=== PATIENT | female | born 1980 | race Two or more races ===

== ENCOUNTER 2020-12-14 15:21 | Outpatient (CLI) | payer OTHER ==
--- NOTE | 2020-12-14 16:49 | XRAY Report ---
PROCEDURE: Lumbar Spine 2 View INDICATIONS: LOW BACK PAIN TECHNIQUE: 2 views of the lumbar spine were acquired. COMPARISON: None. FINDINGS: Bones: 5 [id number] vertebrae are present. There is normal bony alignment. No vertebral body compression fractures. No suspicious bony lesions. Mild multilevel endplate osteophyte formation. F acet hypertrophy throughout the mid and lower lumbar spine. Soft tissues: Overlying bowel gas pattern is normal. No suspicious soft tissue calcifications. IMPRESSION: Multilevel degenerative disc and facet disease. No acute fracture. No osseous lesion. If symptoms and/or clinical suspicion for pathology continue, further assessment with repeat plain film s, or advanced imaging (e.g., CT, MRI, or bone scan) is recommended for further assessment. Reviewed by: Lorrie Coppola MD on 12/14/2020 4:48 PM PST Approved by: Lorrie Coppola MD on 12/14/2020 4:48 PM PST Station ID: [id number]
--- NOTE | 2020-12-14 16:49 | XRAY Report ---
PROCEDURE: Hip w/Pelvis 2-3V RT INDICATIONS: LOW BACK PAIN TECHNIQUE: AP pelvis with lateral view(s) of the bilateral hip(s). COMPARISON: None. FINDINGS: Bones: No fractures or dislocations. Pelvic ring appears intact. No suspicious bony lesions. Mild periarticular osteophyte formation at the bilateral hip joints. Soft tissues: The visualized bowel gas pattern is normal. No suspicious soft tissue calcifications. IMPRESSION: Bilateral hip osteoarthritis. No acute fracture. No osseous lesion. If symptoms and/or c linical suspicion for pathology continue, further assessment with repeat plain films, or advanced miguel ging (e.g., CT, MRI, or bone scan) is recommended for further assessment. Reviewed by: Lorrie Coppola MD on 12/14/2020 4:48 PM PST Approved by: Lorrie Coppola MD on 12/14/2020 4:48 PM PST Station ID: [id number]
== END 2020-12-14 15:22 | disposition home or self-care (01) ==
LOC: DI.N 15:21
PROVIDERS: ATTEND Physician Assistant
DX: M51.36 Other intervertebral disc degeneration, lumbar region (principal); M16.0 Bilateral primary osteoarthritis of hip

== ENCOUNTER 2021-04-24 10:38 | Outpatient (CLI) | payer OTHER ==
[2021-04-24 11:53] LABS: INR 1.2 (0.8-1.2); PT - PROTHROMBIN TIME 12.8 secs (9.9-12.6)
[2021-04-24 12:00] LABS: PARTIAL THROMBOPLASTIN TIME 29.7 secs (24.9-33.3)
[2021-04-24 12:28] LABS: BASOPHILS % (AUTO) 0.5 %; EOSINOPHILS # (AUTO) 0.1 10^3/uL (0.0-0.7); EOSINOPHILS % (AUTO) 1.2 %; HCT - HEMATOCRIT 43.1 % (37.0-47.0); HGB - HEMOGLOBIN 13.7 g/dL (12.0-16.0); LYMPHOCYTES # (AUTO) 2.7 10^3/uL (1.5-3.5); LYMPHOCYTES % (AUTO) 33.3 %; MEAN CORPUSCULAR HEMOGLOBIN 27.4 pg (27.0-31.0); MEAN CORPUSCULAR HGB CONC 31.8 g/dL (32.0-36.0); MEAN CORPUSCULAR VOLUME 86.2 fL (81.0-99.0); MEAN PLATELET VOLUME 11.5 fL (7.9-10.8); MONOCYTES # (AUTO) 0.5 10^3/uL (0.0-1.0); MONOCYTES % (AUTO) 5.6 %; NEUTROPHILS # (AUTO) 4.8 10^3/uL (1.5-6.6); NEUTROPHILS % (AUTO) 59.2 %; PLT - PLATELET COUNT 309 10^3/uL (130-450); RED CELL DISTRIBUTION WIDTH 14.7 % (12.0-15.0); WHITE BLOOD COUNT 8.2 x10^3/uL (4.8-10.8)
== END 2021-04-24 10:39 | disposition home or self-care (01) ==
LOC: LAB.N 10:38
PROVIDERS: ATTEND Family Medicine
DX: Z01.812 Encounter for preprocedural laboratory examination (principal); Z51.81 Encounter for therapeutic drug level monitoring; Z79.899 Other long term (current) drug therapy
CPT/HCPCS: 36415; 85025; 85610; 85730

== ENCOUNTER 2021-11-13 14:42 | Emergency (ER) | payer OTHER, MEDICAID ==
--- NOTE | 2021-11-13 16:13 | ED Physician Documentation ---
PD HPI HEENT - Stated complaint Stated Complaint: BODY ACHES,CHILLS,FEVER,RASH ON BACK - Chief complaint Chief Complaint: Resp - History obtained from History obtained from: Patient - Additional information Additional information: 5 days of fever, chills, feeling like her back is burning, decreased appetite. She is not Covid vaccinated and someone who was in her house over the weekend who is now back in [place] was tested positive for Covid. Review of Systems Constitutional: reports: Fever, Chills Respiratory: reports: Dyspnea, Cough GI: reports: Diarrhea. denies: Nausea, Vomiting PD PAST MEDICAL HISTORY - Allergies Allergies/Adverse Reactions: Allergies Allergy/AdvReac Type Severity Reaction Status Date / Time No Known Drug Allergies Allergy Verified 11/13/21 14:52 PD ED PE NORMAL - Vitals Vital signs reviewed: Yes - General General: Alert and oriented X 3, No acute distress - Respiratory Respiratory: No respiratory distress, Clear bilaterally - Derm Derm: Other (No rash on the back) - Neuro Neuro: Alert and oriented X 3, Normal speech Results - Vitals Vitals: Vital Signs - 24 hr 11/13/21 11/13/21 14:47 16:14 Temperature 36.5 C 36.2 C L Heart Rate 98 97 Respiratory 18 18 Rate Blood Pressure 147/93 H 139/91 H O2 Saturation 98 99 Oxygen O2 Source Room air Departure - Departure Disposition: 01 Home, Self Care Clinical Impression: Viral syndrome Condition: Good Record reviewed to determine appropriate education?: Yes Instructions: ED Viral Syndrome Comments: You have a Covid test pending. You need to self quarantine until the result is done and negative. Do not leave your house. Do not get near anybody. The results should be done in 48 to 72 hours. We will call with a positive result, the fastest way to get a negative result for confirmation though is to go to the hospital website at [email or web address], click on the my [facility] tab and sign up for the patient portal. If any friends or family get sick and would like to have a Covid test done, but do not have signs or symptoms that would necessitate being hospitalized, there are multiple local options for Covid testing. [facility] keeps an updated list of testing and vaccination options at: [email or web address].
[2021-11-13 16:15] VITALS: BP 139/91
== END 2021-11-13 16:23 | disposition home or self-care (01) ==
LOC: ED 14:42
DX: U07.1 COVID-19 (principal)
CPT/HCPCS: 99282; 99283

== ENCOUNTER 2022-04-26 18:34 | Emergency (ER) | payer OTHER, MEDICAID ==
--- NOTE | 2022-04-26 19:15 | ED Physician Documentation ---
PD HPI CHEST PAIN - Stated complaint Stated Complaint: LUMP UNDER RIBCAGE/RT SIDE HEAD & SHOULDER PX - Chief complaint Chief Complaint: General - History obtained from History obtained from: Patient - History of Present Illness Timing - onset: How many weeks ago (pain in xyphoid, parasternal area the past week. Has had it intermittently over 10 years or more. No prior diagnosis. No history of autoimmune disorders but states not really evaluated for them. Onset pain week ago without noted provocation.) Timing - onset during: Light activity Timing - details: Gradual onset, Still present, Waxing and waning Quality: Aching, Sharp, Pain Location: Right chest, Epigastric Radiation: Right upper extremity Improved by: Rest Worsened by: Inspiration, Movement, Palpation, Position. No: Exertion, Eating Associated symptoms: No: Shortness of air, Nausea, Vomiting, Feeling faint / dizzy, Palpitations, Cough Similar symptoms before: No diagnosis Recently seen: Not recently seen Review of Systems Constitutional: denies: Fever, Chills Nose: denies: Rhinorrhea / runny nose, Congestion Throat: denies: Sore throat Cardiac: reports: Chest pain / pressure. 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 - Past Surgical History Past Surgical History: Yes Ortho: Other - Present Medications Home Medications: Ambulatory Orders Medication Instructions Recorded Confirmed HYDROcod/ACETAM 5/325 [Imlay 5/325] 1 ea PO Q6H PRN #15 tablet 04/26/22 Naproxen 500 mg PO BID #20 tab.sr 04/26/22 - Allergies Allergies/Adverse Reactions: Allergies Allergy/AdvReac Type Severity Reaction Status Date / Time No Known Drug Allergies Allergy Verified 04/26/22 18:48 - Social History Does the pt smoke?: No Smoking Status: Never smoker Does the pt drink ETOH?: No Does the pt have substance abuse?: Yes - Immunizations Immunizations are current?: Yes PD ED PE NORMAL - Vitals Vital signs reviewed: Yes - General General: Alert and oriented X 3, Well developed/nourished, Other (appears uncomfortable) - HEENT HEENT: Moist mucous membranes, Pharynx benign - Neck Neck: Supple, no meningeal sign, No adenopathy - Cardiac Cardiac: RRR, No murmur - Respiratory Respiratory: Clear bilaterally, Other (tender significantly and locally at xyphoid, right parasternal and lower costal margin on right. No redness, rash nor sores. Not reallly tender in pectoral muscle itself.) - Abdomen Abdomen: Soft, Non tender - Back Back: No CVA TTP, No spinal TTP - Derm Derm: Normal color, Warm and dry, No rash - Extremities Extremities: No tenderness to palpate, No edema, No calf tenderness / cord Results - Vitals Vitals: Oxygen O2 Source Room air - EKG (time done) 19:14 Rate: Rate (enter#) (91) Rhythm: NSR [place]: Normal Intervals: Normal [place] QRS: Normal Ischemia: Normal ST segments. No: ST elevation c/w ischemia, ST depression - Labs Labs: Laboratory Tests 04/26/22 04/26/22 04/26/22 19:53 19:53 19:53 WBC 10.8 RBC 5.00 Hgb 13.1 Hct 42.0 MCV 84.0 MCH 26.2 L MCHC 31.2 L RDW 15.5 H Plt Count 339 MPV 11.1 H Neut # (Auto) 5.8 Lymph # (Auto) 3.8 H [place] # (Auto) 0.7 Eos # (Auto) 0.3 Baso # (Auto) 0.1 Absolute Nucleated RBC 0.00 Nucleated RBC % 0.0 ESR Sodium 139 Potassium 4.1 Chloride 104 Carbon Dioxide 25 Anion Gap 10.0 BUN 16 Creatinine 0.6 Estimated GFR (MDRD) 111 Glucose 108 H Calcium 9.0 Total Bilirubin 0.5 AST 23 ALT 23 Alkaline Phosphatase 63 Troponin I High Sens < 2.3 L C-Reactive Protein < 1.0 Total Protein 7.9 Albumin 4.0 Globulin 3.9 Albumin/Globulin Ratio 1.0 Lipase 37 04/26/22 19:53 WBC RBC Hgb Hct MCV MCH MCHC RDW Plt Count MPV Neut # (Auto) Lymph # (Auto) [place] # (Auto) Eos # (Auto) Baso # (Auto) Absolute Nucleated RBC Nucleated RBC % ESR 7 Sodium Potassium Chloride Carbon Dioxide Anion Gap BUN Creatinine Estimated GFR (MDRD) Glucose Calcium Total Bilirubin AST ALT Alkaline Phosphatase Troponin I High Sens C-Reactive Protein Total Protein Albumin Globulin Albumin/Globulin Ratio Lipase - Rads (name of study) chest xray Radiology: Prelim report reviewed, See rad report PD MEDICAL DECISION MAKING - ED course Complexity details: reviewed results, considered differential (not tender in abdomen. Very tender at xyphoid and lower costal margin, right parasternal cartilage area. Not really tender in pectoral muscle. ECG/CXr/labs nromal. ), d/w patient Departure - Departure Disposition: 01 Home, Self Care Clinical Impression: Acute chest wall pain Condition: Stable Record reviewed to determine appropriate education?: Yes Instructions: ED Chest Pain Costochondritis Follow-Up: David Magallanes MD [Primary Care Provider] - Prescriptions: Naproxen 500 mg PO BID #20 tab.sr HYDROcod/ACETAM 5/325 [Imlay 5/325] 1 ea PO Q6H PRN #15 tablet PRN Reason: Pain Comments: Your EKG, chest x-ray, blood tests are normal as are your vital signs. No signs of more serious cause of the pain such as heart attack, heart failure, collapsed lung, pneumonia, pancreas problems. The character of your pain along with tenderness of the chest wall in pain with movement suggest some inflammatory process of the cartilage and muscles within the chest in that area. Likely some inflammation of the upper neck muscle as well. By blood testing, there is not an indication or suggestion of autoimmune problem such as rheumatoid arthritis or lupus. Unclear why you are having the inflammation in the chest wall. At this point were treated with anti-inflammatories. I wrote her prescription for naproxen twice daily with food for the next 7 to 10 days. To that add Tylenol every 4-6 hours if needed for pain or hydrocodone/acetaminophen if needs for worse pain. Follow-up with your primary care if not improving well over the next 3 to 5 days. Return if worse. I transmitted your prescription to [facility] in [place]. I am prescribing a short course of narcotic pain medication for you. These are potentially dangerous and addictive medications that should be used carefully. These medications may constipate you. Take an [id number]-xie-djkyrjp stool softener such as docusate twice daily with plenty of water while taking these medications . If you go 24 hours without a bowel movement, take [id number]-[id number] MiraLAX, per package instructions. Do not drink or drive while taking these medications. If you received narcotic or sedating medications while in the emergency department do not drive for 24 hours. Store this medication in a safe, secure place and out of reach of children. It is a violation of federal law to give or sell this medication to another person or to use in a manner other than prescribed. The ED will not refill narcotic prescriptions, including prescriptions lost or stolen. You can dispose of unwanted medications at the [facility]'s office or at several pharmacies such as [facility]. Discharge Date/Time: 04/26/22 21:27
[2022-04-26] MEDS ORDERED: KETOROLAC 15 MG/ML VIAL IVP STA (19:40)
[2022-04-26] MEDS ORDERED: HYDROmorphone 1 MG/ML CARPUJECT IVP STA (19:40)
[2022-04-26 20:03] LABS: BASOPHILS # (AUTO) 0.1 10^3/uL (0.0-0.1); BASOPHILS % (AUTO) 0.7 %; EOSINOPHILS # (AUTO) 0.3 10^3/uL (0.0-0.7); EOSINOPHILS % (AUTO) 3.1 %; HGB - HEMOGLOBIN 13.1 g/dL (12.0-16.0); LYMPHOCYTES # (AUTO) 3.8 10^3/uL (1.5-3.5); LYMPHOCYTES % (AUTO) 35.7 %; MEAN CORPUSCULAR HEMOGLOBIN 26.2 pg (27.0-31.0); MEAN CORPUSCULAR HGB CONC 31.2 g/dL (32.0-36.0); MEAN PLATELET VOLUME 11.1 fL (7.9-10.8); MONOCYTES # (AUTO) 0.7 10^3/uL (0.0-1.0); MONOCYTES % (AUTO) 6.8 %; NEUTROPHILS # (AUTO) 5.8 10^3/uL (1.5-6.6); NEUTROPHILS % (AUTO) 53.4 %; PLT - PLATELET COUNT 339 10^3/uL (130-450); RED CELL DISTRIBUTION WIDTH 15.5 % (12.0-15.0); WHITE BLOOD COUNT 10.8 x10^3/uL (4.8-10.8)
[2022-04-26 20:26] LABS: ALKALINE PHOSPHATASE 63 IU/L (42-121); ALT ALANINE AMINOTRANSFERASE 23 IU/L (10-60); AST ASPARTATE AMINOTRANSFERASE 23 IU/L (10-42); BILIRUBIN,TOTAL 0.5 mg/dL (0.2-1.0); BUN - BLOOD UREA NITROGEN 16 mg/dL (6-20); CARBON DIOXIDE - CO2 25 mmol/L (21-32); CHLORIDE 104 mmol/L (101-111); CREATININE 0.6 mg/dL (0.4-1.0); GFR - MDRD 111 (>89); GLUCOSE 108 mg/dL (70-100); LIPASE 37 U/L (22-51); POTASSIUM 4.1 mmol/L (3.5-5.0); SODIUM 139 mmol/L (135-145); TOTAL PROTEIN 7.9 g/dL (6.7-8.2)
[2022-04-26 20:33] LABS: CRP - C-REACTIVE PROTEIN < 1.0 mg/dL (0-1.0)
--- NOTE | 2022-04-26 20:42 | XRAY Report ---
PROCEDURE: Chest 1 View X-Ray INDICATIONS: chest pain TECHNIQUE: One view of the chest was acquired. COMPARISON: None. FINDINGS: Surgical changes and devices: None. Lungs and pleura: No pleural effusions or pneumothorax. Lungs are clear. Mediastinum: Mediastinal contours appear normal. Heart size is normal. Bones and chest wall: No suspicious bony lesions. Overlying soft tissues appear unremarkable. IMPRESSION: No pneumonia found, source of chest pain is not identified. Reviewed by: Dion Vazquez MD on 04/26/2022 8:41 PM PDT Approved by: Dion Vazquez MD on 04/26/2022 8:41 PM PDT Station ID: [id number]
[2022-04-26] MEDS ORDERED: HYDROcod/ACET 5/325 Prepack 4 PO STA (20:59)
[2022-04-26 21:03] VITALS: BP 133/77
== END 2022-04-26 21:27 | disposition home or self-care (01) ==
LOC: ED 18:34
DX: R07.89 Other chest pain (principal)
CPT/HCPCS: 36415; 71045; 80053; 83690; 84484; 85025; 85651; 86140; 93005; 96374; 99284; J1170

== ENCOUNTER 2023-10-26 13:57 | Outpatient (CLI) | payer OTHER, MEDICAID ==
--- NOTE | 2023-10-28 16:33 | SLEEP CARE CONSULTATION ---
Information from patient questionnaire entered by Nader Morales. I have reviewed and concur with the information entered by Nader Morales. This document represents the service I personally performed and the decisions made by me, Randy Tijerina MD, [facility]. History of Present Illness Service Date and Time: 10/26/2023 3557 Reason for Visit: New patient Chief Complaint: reports: Snoring, Fatigue, Frequent awakenings at night Usual bedtime: 10PM-12AM Time it takes to fall asleep: ABOUT 1-1.5HRS Snores at night: Yes Sleeps alone due to snoring: No Number of times waking at night: 2-4 Reasons for waking at night: reports: Snoring, Gasping for air, Other (UNKNOWN) Toss, Turn, or Twitch while sleeping: Yes Recalls having dreams: Yes Usually gets out of bed at: 0430 Feels refreshed in the morning: No Morning headache: Yes Sleepy or fatigued during the day: Yes Ever fallen asleep while driving: No Takes day naps: No Dreams during day naps: Yes Prior sleep studies: Yes Additional HPI information: I had the pleasure of seeing Ms. Lenz today regarding obstructive sleep apnea- hypopnea. As you know, she is a 43-year-old lady who was diagnosed with the sleep-disordered breathing at the [facility] in 2017. The sleep study report is not available because the facility closed several years ago. She was prescribed a CPAP which she never used because she was moving and put it in storage. She only found it recently. She was fitted with a Respironics DreamWear nasal cushion mask. She had sleep study because her complained of her snore and saw her quit breathing. Since the sleep study, she has gained 40 lbs. Her snore remains loud and her continues to see her quit breathing. 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 Patient is and lives in [place]. Have you smoked in the past 12 months: No Alcohol use: No Caffeine use: Yes Caffeine amount and frequency: 2-3 A DAY Family History Family history of sleep disordered breathing: No Allergies and Home Medications Known drug allergies: No Drug allergies reviewed: Yes Home medication list reviewed: Yes Allergy and home medication list: Allergies No Known Drug Allergies Allergy (Verified 10/21/23 16:05) Review of Systems Review of systems same as previous: Yes Weight gain over past 5 years: 40 Cardiovascular: reports: leg or foot swelling Respiratory: reports: shortness of breath Gastrointestinal: reports: abdominal pain Urinary: reports: incontinence Neurological: reports: headaches Psychiatric: denies: Attention Deficit Hyperactivity, anxiety, depression, mood disorder, claustrophobia, other Ear/Nose/Throat: denies: nasal congestion, sinus problems, nose bleeds, dry mouth/throat, hoarseness, injury to nose, tonsillectomy, wisdom teeth removed, other Endocrine: denies: thyroid disease, history of goiter, sluggishness, too hot or cold, excessive thirst, increased appetite, increased urination, unexplained weakness, other Musculoskeletal: reports: joint pain, back pain, joint swelling Immunologic: denies: sneezing, rash, itching, allergies to food or environment, other Physical Exam Vital signs obtained and entered by: NADER Manzano MA Blood Pressure: 137/74 (RIGHT ARM) Cuff size: long Heart Rate: 97 O2 Saturation: 98 Height: 5 ft 3 in Weight: 243 lb 12.8 oz Body Mass Index: 43.2 BMI Classification: Morbidly Obese Neck circumference: 18 Mood/affect: Normal HEENT: No craniofacial malformation Nostrils: patent to airflow Turbinates: normal Septum: midline Mouth and throat: narrow oropharynx Soft palate: long Hard palate: normal Uvula: normal Uvula visualization: 25% Mallampati Class III Tongue: normal in size Tonsils: small Chin and jaw: normal size and position Neck: normal w/o lymphadenopathy or thyromegaly Heart: regular rate and rhythm Lungs: clear bilaterally Extremities: no edema or clubbing Neurologic: no focal deficits Impression and Plan IMPRESSION: 1. Obstructive Sleep Apnea-Hypopnea Syndrome, previously diagnosed obstructive sleep apnea. The severity is unknown. The patient is not using her ResMed AirSense 10. She appears to be symptomatic for loud snore, frequent awakenings, unrefreshed sleep, and excessive daytime sleepiness (Edison Sleepiness Scale score is 10). Narrow oropharynx and obesity are common predisposing factors for obstructive sleep apnea-hypopnea syndrome. Therefore, an in-laboratory polysomnography is necessary to confirm the diagnosis. If she again has significant sleep-disordered breathing, I will order her all new equipment. Plan: 1. Schedule polysomnography and return in 1 to 2 weeks after the study to discuss result and initiate therapy. 2. Avoid long distance driving or when feeling sleepy. 3. Avoid alcohol, sedative and muscle relaxant around bedtime. 4. Attempt to lose weight. Follow up with Sleep Care in: 1-2 months Visit Type: In Office Time Spent with Patient (minutes): 15 Provider Statement: I spent 100% of the Face to Face Visit with the patient with greater than 50% spent counseling the patient and coordination of care.
[2023-10-28 16:41] VITALS: BP 137/74; O2SAT 98
== END 2023-10-26 13:58 | disposition home or self-care (01) ==
LOC: SC 13:57
PROVIDERS: ATTEND Internal Medicine Pulmonary Disease
DX: G47.33 Obstructive sleep apnea (adult) (pediatric) (principal); E66.01 Morbid (severe) obesity due to excess calories; Z68.41 Body mass index [BMI] 40.0-44.9, adult
CPT/HCPCS: 99202; 99212

== ENCOUNTER 2023-11-06 11:27 | Outpatient (CLI) | payer OTHER, MEDICAID ==
[2023-11-06 18:45] LABS: THYROID STIMULATING HORMONE 1.8 uIU/mL (0.34-5.60)
[2023-11-07 15:08] LABS: FREE TESTOSTERONE(DIRECT) 3.4 pg/mL (0.0-4.2); SEX HORM BINDING GLOB SERUM 21.8 nmol/L (24.6-122.0)
== END 2023-11-06 11:28 | disposition home or self-care (01) ==
LOC: LAB.N 11:27
PROVIDERS: ATTEND Obstetrics & Gynecology
DX: E28.2 Polycystic ovarian syndrome (principal)
CPT/HCPCS: 36415; 83525; 84270; 84402; 84403; 84443

== ENCOUNTER 2023-11-19 19:40 | Outpatient (CLI) | payer OTHER, MEDICAID | END 2023-11-19 19:41 | disposition home or self-care (01) | LOC: SC 19:40 | PROVIDERS: ATTEND Internal Medicine Pulmonary Disease | DX: G47.33 Obstructive sleep apnea (adult) (pediatric) (principal); G47.61 Periodic limb movement disorder | CPT/HCPCS: 95810 ==

== ENCOUNTER 2023-11-23 13:33 | Outpatient (CLI) | payer OTHER, MEDICAID ==
--- NOTE | 2023-11-23 16:43 | Ultrasound Report ---
PROCEDURE: Pelvic w/Transvaginal INDICATIONS: POLYCYSTIC OVARY SYN TECHNIQUE: Real-time scanning was performed of the pelvic organs, with image documentation. Additional endovagi nal scanning was necessary due to incomplete visualization of the adnexal and endometrial structures by transabdominal scanning. COMPARISON: None. FINDINGS: Uterus: Uterus is retroverted and normal in size at 7.6 x 4.8 x 6.4 cm. The myometrium is homogeneo us. The endometrium measures 12 mm in combined thickness. Echogenic focus adjacent to the endometri al stripe measuring 3 x 4 mm. Probable intramural fibroid at the fundus measuring 1.4 cm. Ovaries: The right ovary measures 3.9 x 2.3 x 1.8 cm, with a calculated ovarian volume of 8.1 cc. T he left ovary measures 1.9 x 2.1 x 1.5 cm, with a calculated ovarian volume of 3.3 cc. The ovaries h ave a normal sonographic appearance. Less than 12 follicles can be seen in each ovary. No adnexal m asses are seen. No cystic lesions measuring greater than 3 cm. Degenerating right-sided corpus luteum . Other: No pathologic free abdominal or pelvic fluid. IMPRESSION: Less than 12 follicles per ovary. Echogenic focus adjacent to the endometrial stripe measuring 3 x 4 mm. Findings may indicate adenomyo sis. Intramural fibroid at the fundus measuring 1.4 cm. Reviewed by: Tu Jesus MD on 11/23/2023 4:41 PM PST Approved by: Tu Jesus MD on 11/23/2023 4:41 PM PST Station ID: [id number]
== END 2023-11-23 13:34 | disposition home or self-care (01) ==
LOC: DI 13:33
PROVIDERS: ATTEND Obstetrics & Gynecology
DX: D25.1 Intramural leiomyoma of uterus (principal); E28.2 Polycystic ovarian syndrome

== ENCOUNTER 2023-11-23 13:34 | Outpatient (CLI) | payer OTHER, MEDICAID ==
--- NOTE | 2023-11-24 15:37 | Mammography Report ---
BILATERAL DIGITAL SCREENING MAMMOGRAM 3D/2D: 11/23/2023 CLINICAL: Baseline exam. Routine screening. No prior exams were available for comparison. There are scattered areas of fibroglandular density in both breasts (category b / 25%-50% glandular t issue). No significant masses, calcifications, or other findings are seen in either breast. IMPRESSION: NEGATIVE There is no mammographic evidence of malignancy. A 1 year screening mammogram is recommended. Based on the Tyrer Cuzick model (a risk assessment model) the patients lifetime risk is 7.2% and her 10 year risk is 1.0%. According to the ACR, ACS, and NCCN guidelines, an annual breast MRI exam along with mammogram is recommended if the patients lifetime risk is 20% or greater. This exam was interpreted at Station ID: [id number]. NOTE: For mammograms, a report in lay terms will be sent to the patient. Approximately 15% of breast malignancies will not be visualized mammographically. In the management of a palpable breast mass, a negative mammogram must not discourage biopsy of a clinically suspicious lesion. Electronically Signed By: Azul arteaga/aubrey:11/23/2023 16:06:30 ACR BI-RADS Category 1: Negative 3341F PARENCHYMAL PATTERN: (A) - The breast(s) demonstrate(s) scattered fibroglandular densities. BI-RADS CATEGORY: (1) - 1 Mammogram [id number] 1 year screening LATERALITY: (B)
== END 2023-11-23 13:35 | disposition home or self-care (01) ==
LOC: DI 13:34
PROVIDERS: ATTEND Obstetrics & Gynecology
DX: Z12.31 Encounter for screening mammogram for malignant neoplasm of breast (principal); R92.323 Mammographic fibroglandular density, bilateral breasts

== ENCOUNTER 2023-12-02 13:18 | Outpatient (CLI) | payer OTHER, MEDICAID ==
--- NOTE | 2023-12-02 13:44 | Sleep Patient Instructions ---
Sleep Center Visit Summary - Patient Visit Information Reason for Visit: Sleep study follow up - Patient Instructions Instructions Attached: CPAP Additional Instructions: You are being started on CPAP therapy with pressure setting at 4-15 cmH2O. You w ill need to call the sleep care office to set up your follow up once you have your APAP machine and we will schedule a visit to check compliance and response to therapy at that time. You may call the office with any concerns about pressure feeling too low or too much for adjustment, if needed. You should contact DME supplier for any questions or concerns about mask or equipment. Please call office to schedule a follow up appointment in the sleep care office one month after obtaining new device. - Clinic Information Contact: [facility] [address] [place] [address] [email or web address] T: [phone]
--- NOTE | 2023-12-02 13:46 | SLEEP CARE CONSULTATION ---
Information from patient questionnaire entered by Emma Morales. I have reviewed and concur with the information entered by Emma Morales. This document represents the service I personally performed and the decisions made by me, Nelly Tirado ARNP. History of Present Illness Service Date and Time: 12/02/2023 1318 Initial [place] Sleepiness Scale score: 8 Current [place] Sleepiness Scale score: 16 (12/02/23) Additional HPI information: JARROD KEITH returns for follow up and results of the recently performed polysomnography. The sleep study showed mild obstructive sleep apnea with an average AHI of 13.9 and leonela oxygen saturation of 75%. She also had moderate PLMs that did not contribute to sleep fragmentation. I explained the pathophysiology behind obstructive sleep apnea. We then spent quite a bit of time discussing different treatment options. For mild obstructive sleep apnea, surgery and oral appliance are alternatives to nasal CPAP therapy but in moderate or severe cases, nasal CPAP is the most effective and reliable treatment. I reviewed the impact of weight changes on sleep apnea and strongly recommended losing weight. After some discussion, the patient opted to go with the nasal CPAP therapy. Nasal autoCPAP set at 4-15 cmH20 will be ordered with rationale explained. A manual titration study will be ordered if unable to find optimal pressure with office adjustments. I explained how CPAP machine works and what to expect when using the machine. Using CPAP every night in order to get used to it was emphasized. Patient advised to put CPAP mask on before getting into bed so as not to fall asleep without CPAP. To assist acclimation to CPAP use, it could also be used for a short time during day while reading or watching TV. The patient was instructed to call the CPAP supplier to discuss any mechanical problem that may occur. If the mask given is uncomfortable or is difficult to keep on through the night even with adjustment, contact the CPAP supplier as many will replace with another mask style if notified before 30 days. If snoring or perceives is not getting enough air or too much air from the machine, notify this office. Patient does not drink alcohol. Patient was cautioned about risks of drowsy driving until sleepiness symptoms resolve. Patient denies drowsy driving. Sleep Study - Results Type of Sleep Study: Polysomnography (COMPLETED 11/19/23) Prior sleep studies: Yes Polysomnography/Home Sleep Study results: IMPRESSION: The quality of the study is good. The patient had normal sleep efficiency. The sleep architecture was abnormal for sleep fragmentation and lack of slow wave sleep (N3). Respiratory monitoring showed mild obstructive sleep apnea-hypopnea (AHI = 13.9) associated with frequent arousals, oxyhemoglobin desaturation and moderate hypoxia (leonela oxygen saturation of 75%). Baseline oxygen saturation was normal. The respiratory events occurred mainly during REM (supine AHI = 18.0; non-supine = 11.32). Snore was light to loud in intensity. There was moderate periodic leg movement of sleep not contributing to the sleep fragmentation. Cardiac rhythm was normal sinus rhythm without significant arrhythmia. No abnormal behavior (parasomnia) observed during the night. Allergies and Home Medications Known drug allergies: No Drug allergies reviewed: Yes Home medication list reviewed: Yes (Metformin) Allergy and home medication list: Allergies No Known Drug Allergies Allergy (Verified 11/30/23 13:57) Home Medications Medication Instructions Recorded Confirmed Last Taken Type HYDROcod/ACETAM 5/325 [Arp 5/325] 1 ea PO Q6H PRN #15 tablet 04/26/22 12/02/23 Unknown Rx Naproxen 500 mg PO BID #20 tab.sr 04/26/22 12/02/23 Unknown Rx Metformin HCl [Metformin ER See Rx Instructions .ROUTE .COMPLEX 12/02/23 12/02/23 Unknown History Gastric] Review of Systems Review of systems same as previous: Yes (NO CHANGE) Physical Exam Vital signs obtained and entered by: EMMA Mnazano MA Blood Pressure: 150/87 (LEFT) Cuff size: wrist Heart Rate: 99 O2 Saturation: 98 Height: 5 ft 3 in Weight: 244 lb 6.4 oz Body Mass Index: 43.2 BMI Classification: Morbidly Obese Impression and Plan 1. Obstructive Sleep Apnea-Hypopnea Syndrome, mild, with lowest oxygen saturation of 75%. Obviously this is the cause of the patients symptoms of unrefreshed sleep, and excessive daytime sleepiness. As mentioned above, the patient will be started on nasal autoCPAP therapy with pressure set at 4-15 cmH2 O. A manual titration study will be completed if unable to find optimal treatment pressure with office adjustments. Compliance guidelines also reviewed. A copy of compliance guidelines will be given for reference at check out. Because the apnea is more severe supine, I instructed to avoid sleeping supine using pillow positioning until able to start CPAP use. 2. Hypoxemia, moderate, with a leonela oxygen saturation of 75% and 14.3 minutes spent under 90%. The baseline oxygen saturation was normal with an average oxygen saturation of 95%. 3. Periodic limb movement, moderate, that did not fragment patients sleep. Periodic limb movement of sleep (PLMS) is characterized by episodes of repetitive limb movements that occur during sleep and usually involve the lower limbs. The etiology is unknown. Sleep hygiene methods can also improve sleep as well as lifestyle changes such as regular exercise. Patient was advised that no treatment is needed at this time. If symptoms increase, then further evaluation is indicated. 4. Obesity, unspecified. Currently patients BMI is 43.2. Obesity increases the risk of apnea, CPAP pressure requirements and overall health risks especially cardiovascular and diabetes. Thus patient is advised to lose weight. * Nasal auto CPAP therapy, pressure at 4-15 cm H2O. * Attempt to lose weight. * Avoid alcohol consumption near bedtime. * Avoid supine sleep until using CPAP. * The patient is again cautioned about driving until sleepiness completely resolves. * Return one month after CPAP obtained. I will assess response to therapy and compliance at that time. Counseling Topics: Weight loss health impact Prescriptions: Auto CPAP Follow up with Sleep Care in: other (compliance visit) Visit Type: In Office Time Spent with Patient (minutes): 20 Provider Statement: I spent 100% of the Face to Face Visit with the patient with greater than 50% spent counseling the patient and coordination of care.
[2023-12-02 13:52] VITALS: BP 150/87; O2SAT 98
== END 2023-12-02 13:19 | disposition home or self-care (01) ==
LOC: SC 13:18
PROVIDERS: ATTEND Nurse Practitioner Family
DX: G47.33 Obstructive sleep apnea (adult) (pediatric) (principal); R09.02 Hypoxemia; G47.61 Periodic limb movement disorder; E66.01 Morbid (severe) obesity due to excess calories; Z68.41 Body mass index [BMI] 40.0-44.9, adult
CPT/HCPCS: 99212; 99213

== ENCOUNTER 2024-05-16 19:37 | Emergency (ER) | payer OTHER, MEDICAID ==
[2024-05-16 20:05] VITALS: BP 150/84; O2SAT 98
--- NOTE | 2024-05-16 20:49 | XRAY Report ---
PROCEDURE: Ankle 3+V LT INDICATIONS: Trauma TECHNIQUE: 3 views of the ankle were acquired. COMPARISON: None. FINDINGS: Bones: No fractures or dislocations. Ankle mortise is normally aligned. No suspicious bony lesions . Small plantar and retrocalcaneal enthesophytes. Well-corticated ossific density at the tip of the m edial malleolus is favored to represent sequela of prior trauma versus ossicle Soft tissues: No tibiotalar joint effusion. Achilles tendon appears normal. IMPRESSION: No acute bony abnormality. Reviewed by: Gemma Dolan MD, PhD on 05/16/2024 8:47 PM PDT Approved by: Gemma Dolan MD, PhD on 05/16/2024 8:47 PM PDT Station ID: [id number]
[2024-05-16] MEDS: oxyCODONE 5 MG TABLET PO STA ×2 (21:52→23:03)
--- NOTE | 2024-05-16 22:38 | XRAY Report ---
PROCEDURE: Foot 3+V LT INDICATIONS: fall, foot pain TECHNIQUE: 3 views of the foot were acquired. COMPARISON: None. FINDINGS: Bones: No fractures or dislocations. No suspicious bony lesions. Small plantar and calcaneal enthe sophytes. Soft tissues: No tibiotalar joint effusion. Achilles tendon appears normal. IMPRESSION: No acute bony abnormality. Reviewed by: Gemma Dolan MD, PhD on 05/16/2024 10:37 PM PDT Approved by: Gemma Dolan MD, PhD on 05/16/2024 10:37 PM PDT Station ID: [id number]
--- NOTE | 2024-05-16 23:01 | ED Physician Documentation ---
PD HPI LOWER EXT INJURY - Stated complaint Stated Complaint: LT ANKLE INJ - Chief complaint Chief Complaint: Trauma Ext - History obtained from History obtained from: Patient - History of Present Illness PD HPI LOW EXT INJURY LOCATION: Left, Ankle, Foot Type of injury: Fall, Twist Pain level max: 0 Pain level now: 0 Contributing factors: No: Anticoagulated - Additional information Additional information: 44-year-old female states that she was walking out onto a soccer field today when she rolled her left foot and ankle. Complains of pain to the left foot and ankle. Worse with walking, better with rest. Came in on her own crutches. Has not taken anything for pain. Is not , breast-feeding or trying to become . No head, neck, back pain. No numbness or tingling. No deformity. 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 - Past Surgical History Past Surgical History: Yes Ortho: Other - Present Medications Home Medications: Ambulatory Orders Medication Instructions Recorded Confirmed HYDROcod/ACETAM 5/325 [[employer] 5/325] 1 ea PO Q6H PRN #15 tablet 04/26/22 12/02/23 Naproxen 500 mg PO BID #20 tab.sr 04/26/22 12/02/23 Metformin HCl [Metformin ER See Rx Instructions .ROUTE .COMPLEX 12/02/23 12/02/23 Gastric] Oxycodone HCl/Acetaminophen 1 - 2 each PO Q6H PRN #14 tablet 05/16/24 [Percocet 5-325 mg Tablet] MDD 6 tabs - Allergies Allergies/Adverse Reactions: Allergies Allergy/AdvReac Type Severity Reaction Status Date / Time No Known Drug Allergies Allergy Verified 05/16/24 21:00 - Social History Does the pt smoke?: No Smoking Status: Never smoker Does the pt drink ETOH?: No Does the pt have substance abuse?: Yes - Immunizations Immunizations are current?: Yes - POLST Patient has POLST: No PD ED PE NORMAL - Vitals Vital signs reviewed: Yes - General General: Alert and oriented X 3, No acute distress - HEENT HEENT: Moist mucous membranes - Neck Neck: Supple, no meningeal sign - Derm Derm: Warm and dry - Extremities Extremities: Other (L foot - mild TTP over the lateral malleolus. TTP mainly over the shaft of the 5th MT. NVI. No deformity. o/w normal exam of the foot and ankle.) - Neuro Neuro: Alert and oriented X 3 Results - Vitals Vitals: Oxygen O2 Source Room air - Rads (name of study) L foot xray Relevant Findings:: Final report received, See rad report L ankle xray Relevant Findings:: Final report received, See rad report PD Medical Decision Making - ED course Complexity details: reviewed results, re-evaluated patient, considered differential, d/w patient ED course: Patient with a left foot and ankle sprain. No acute findings on x-ray. No fractures or dislocations. Pain well controlled here. Will place on pain medication for Home. Tang bandage applied, can bear weight as tolerated. Discuss a walking boot, but given her position of comfort, I think that would be more painful. Patient counseled regarding signs and symptoms for which I believe an urgent re-evaluation would be necessary. Patient with good understanding of and agreement to plan and is comfortable going home at this time. This document was made in part using voice recognition software. While efforts are made to proofread this document, sound alike and grammatical errors may occur. Patient brought crutches with her. Departure - Departure Disposition: 01 Home, Self Care Clinical Impression: Sprain of left foot Qualifiers: Encounter type: initial encounter Qualified Code(s): S93.602A - Unspecified sprain of left foot, initial encounter Sprain of left ankle Qualifiers: Encounter type: initial encounter Involved ligament of ankle: unspecified ligament Qualified Code(s): S93.402A - Sprain of unspecified ligament of left ankle, initial encounter Condition: Good Instructions: ED Sprain Foot, ED Sprain Ankle Follow-Up: your,doctor in 1 week [Other] Prescriptions: Oxycodone HCl/Acetaminophen [Percocet 5-325 mg Tablet] 1 - 2 each PO Q6H PRN #14 tablet MDD 6 tabs PRN Reason: pain Comments: There are no acute findings on xray of your left ankle or left foot. [facility]. Appears that you likely have a foot sprain. Would recommend the postoperative shoe to help with ambulation. Recommend that you continue to use your crutches until you can bear weight on your ankle and foot. I am prescribing a short course of narcotic pain medication for you. These are potentially dangerous and addictive medications that should be used carefully. These medications may constipate you. Take an auox-hhp-oslhzqh stool softener (docusate) twice daily with plenty of water while taking these medications. If you go 24 hours without a bowel movement, take hsmo-[id number]-[id number] miralax, per package instructions. Do not drink or drive while taking these medications. If you received narcotic or sedating medications while in the emergency department, do not drive for 24 hours. Store this medication in a safe, secure place and out of reach of children. It is a violation of federal law to give or sell this medication to another person or to use in a manner other than prescribed. The ED will not refill narcotic prescriptions, including prescriptions lost or stolen. To dispose of unwanted medications: 1. [facility] at [address] in [place] has a medication drop box. They accept prescription medications (in pill form) Thursday through Thursday 9:00 a.m. to 5:00 p.m. 2. The [facility] [employer] accepts prescription medications (in pill form only) for disposal year round. Call for more information. 3. Contact the [facility] for the next [facility] sponsored prescription drug collection event. , [phone], or [phone]; Forms: PCP List Discharge Date/Time: 05/16/24 23:15
== END 2024-05-16 23:15 | disposition home or self-care (01) ==
LOC: ED 19:37
DX: S93.402A Sprain of unspecified ligament of left ankle, initial encounter (principal); S93.602A Unspecified sprain of left foot, initial encounter; X50.1XXA Overexertion from prolonged static or awkward postures, initial encounter; Y93.01 Activity, walking, marching and hiking; Y92.322 Soccer field as the place of occurrence of the external cause
CPT/HCPCS: 73610; 73630; 99283; A9270

== ENCOUNTER 2024-06-30 12:47 | Outpatient (CLI) | payer OTHER, MEDICAID ==
--- NOTE | 2024-06-30 13:18 | Sleep Patient Instructions ---
Sleep Center Visit Summary - Patient Visit Information Reason for Visit: First compliance follow-up for PAP therapy - Patient Instructions Additional Instructions: You were here for follow up of CPAP therapy. You will be continued on CPAP therapy with pressure at 10-12 cmH2O. Please let us know if the pressure change is uncomfortable and we can make further adjustments of the pressure. You should follow up with sleep care in 1-2 months. You may contact us sooner for any questions or concerns. - Clinic Information Contact: [facility] [address] [place] [address] [email or web address] T: [phone]
--- NOTE | 2024-06-30 13:20 | SLEEP CARE CONSULTATION ---
Information from patient questionnaire entered by Emma Morales. I have reviewed and concur with the information entered by Emma Morales. This document represents the service I personally performed and the decisions made by me, Nelly Tirado ARNP. History of Present Illness Service Date and Time: 06/30/2024 1247 Previous diagnosis: Mild, Obstructive Sleep Apnea-Hypopnea Syndrome AHI: 13.9 (11/19/2023) Reason for follow up: first compliance Accompanied by: Spouse Equipment type: CPAP (RESMED 11 S/U 12/31/23) Equipment obtained from: Other ([facility]; getting supplies) Mask style: Nasal pillows (Drew II) Backup mask available: Yes Last cushion change: 2 weeks ago Prior sleep studies: Yes Type of Sleep Study: Polysomnography (COMPLETED 11/19/23) HPI additional information: JARROD KEITH was diagnosed to have mild, AHI 13.9, obstructive sleep apnea- hypopnea syndrome and returned today for CPAP therapy first compliance follow- up. Sleep Study - Results Type of Sleep Study: Polysomnography (COMPLETED 11/19/23) Prior sleep studies: Yes CPAP Compliance Data - Data Reviewed with Patient Average duration of nightly device use: 4 HRS 50 MINS Compliance rate %: 70 (01/28/24-02/26/24; 25/30 days used) Current pressure setting (cmH2O): 4-15 (median 7, avg 10.6, max 11.6) Average residual AHI: 1.2 Central apnea: 0.1 Obstructive apnea: 0.6 Hypopnea: 0.4 Average large leak: 0.6 L/min Subjective Missed days of use due to: reports: travel Patient concerns: reports: dry mouth, nose, throat (dry mouth, occasionally). denies: aerophagia, mask discomfort, air blowing in eyes, mask leak noise, cond ensation in mask/hose, nasal congestion, epistaxis Observed to snore while using device: No Current pressure setting perceived as: comfortable On therapy, patient: reports: sleeping better, awakening more refreshed, more rested overall, other (has less headaches, less migraines). denies: drowsiness while driving Initial [place] Sleepiness Scale score: 8 Current [place] Sleepiness Scale score: 11 (06/30/24) Allergies and Home Medications Known drug allergies: No Drug allergies reviewed: Yes Home medication list reviewed: Yes (metformin 1000 mg x2) Allergy and home medication list: Allergies No Known Drug Allergies Allergy (Verified 06/30/24 12:56) Review of Systems Review of systems same as previous: Yes (no changes) Physical Exam Vital signs obtained and entered by: EMMA Manzano MA Blood Pressure: 150/90 (RIGHT ARM) Cuff size: long Heart Rate: 95 O2 Saturation: 98 Height: 5 ft 3 in Weight: 243 lb 12.8 oz Body Mass Index: 43.2 BMI Classification: Morbidly Obese Impression and Plan 1. Obstructive Sleep Apnea-Hypopnea Syndrome, mild, with good treatment compliance and good apnea control. On CPAP therapy, the patient has better sleep quality and is more rested overall. Patient has significant improvement of their sleep apnea and is satisfied with current CPAP therapy. The patients pressure will be changed to autoCPAP 10-12 cmH20 to reflect the pressure being used. Patient advised to contact me if pressure change is uncomfortable so that it can be adjusted. Goals for apnea control discussed. Patient's apnea severity and rationale for treatment to reduce apnea, improve sleep quality and reduce cardiovascular and cerebrovascular events was reviewed. She has a history of insulin resistance (PCOS). 2. Obesity, unspecified. Currently patients BMI is 43.2. Obesity increases the risk of apnea, CPAP pressure requirements and overall health risks especially cardiovascular and diabetes. Thus patient is advised to lose weight. * Change auto CPAP pressure to 10-12 cmH2O * Notify me if snoring with mask or feeling that the pressure is too much or too little * Attempt to lose weight * Call this office if any problems using CPAP * Return for follow up in 1-2 months, or sooner if concerns arise Adjust device pressure to (cmH2O): 10-12 Counseling Topics: Spare mask, Weight loss health impact Follow up with Sleep Care in: 1-2 months Visit Type: In Office Time Spent with Patient (minutes): 20 Provider Statement: I spent 100% of the Face to Face Visit with the patient with greater than 50% spent counseling the patient and coordination of care.
[2024-06-30 13:26] VITALS: BP 150/90; O2SAT 98
== END 2024-06-30 12:48 | disposition home or self-care (01) ==
LOC: SC 12:47
PROVIDERS: ATTEND Nurse Practitioner Family
DX: G47.33 Obstructive sleep apnea (adult) (pediatric) (principal); E66.01 Morbid (severe) obesity due to excess calories; Z68.41 Body mass index [BMI] 40.0-44.9, adult
CPT/HCPCS: 99212; 99213